=== PATIENT | female | born 1995 ===

== ENCOUNTER 2017-08-10 14:53 | Emergency (ER) | payer OTHER ==
[2017-08-10 15:13] VITALS: BMI 24.3
[2017-08-10 15:42] LABS: HCG,QUALITATIVE URINE NEGATIVE (NEGATIVE)
[2017-08-10 15:56] LABS: SQUAMOUS EPITHIAL 7 /hpf (0-5); URINE BACTERIA RARE (<OCC); URINE BILIRUBIN NEGATIVE (NEGATIVE); URINE BLOOD 2+ (NEGATIVE); URINE CLARITY Hazy (Clear); URINE COLOR Yellow (YELLOW); URINE GLUCOSE (UA) NORMAL (Normal); URINE LEUKOCYTE ESTERASE 3+ Leu/uL (Negative); URINE PROTEIN 1+ mg/dL (NEGATIVE)
[2017-08-10] MEDS ORDERED: Tmp-Smz 800 mg-160 mg DS Tab PO STA (15:58)
[2017-08-10 15:59] VITALS: BP 114/73; PULSE 94; RESP 18; TEMP 99.7; O2SAT 99
--- NOTE | 2017-08-10 16:01 | C.PDOC ---
History Of Present Illness 21 y/o female with history of UTI presents to ED with c/o dysuria for 2 days, and today associated with back pain and fever. Patient reports symptoms are similar as prior UTI. Patient denies vaginal bleeding, nausea, vomiting or any other complaints at this time. Time Seen by Provider: 08/10/17 15:25 Chief Complaint (Nursing): Fever History Per: Patient History/Exam Limitations: no limitations Onset/Duration Of Symptoms: Days Current Symptoms Are (Timing): Still Present Associated Symptoms: Fever, Urinary Symptoms Past Medical History Reviewed: Historical Data, Nursing Documentation, Vital Signs Vital Signs: Last Vital Signs Temp 99.7 F H 08/10/17 15:59 Pulse 94 H 08/10/17 15:59 Resp 18 08/10/17 15:59 BP 114/73 08/10/17 15:59 Pulse Ox 99 08/10/17 16:07 - Medical History PMH: No Chronic Diseases Surgical History: No Surg Hx Family History: States: No Known Family Hx - Social History Hx Alcohol Use: No Hx Substance Use: No - Immunization History Hx Tetanus Toxoid Vaccination: No Hx Influenza Vaccination: No Hx Pneumococcal Vaccination: Yes Review Of Systems Constitutional: Positive for: Fever. Negative for: Chills Gastrointestinal: Negative for: Nausea, Vomiting, Abdominal Pain Genitourinary: Positive for: Dysuria. Negative for: Vaginal Bleeding Musculoskeletal: Positive for: Back Pain Skin: Negative for: Rash Physical Exam - Physical Exam Appears: Non-toxic, No Acute Distress Skin: Warm, Dry, No Rash Head: Atraumatic, Normacephalic Eye(s): bilateral: Normal Inspection Oral Mucosa: Moist Neck: Normal ROM, Supple Cardiovascular: Rhythm Regular Respiratory: Normal Breath Sounds, No Rales, No Rhonchi, No Wheezing Gastrointestinal/Abdominal: Soft, Tenderness (Mild suprapubic), No Guarding, No Rebound Back: No CVA Tenderness, No Paraspinal Tenderness Neurological/Psych: Oriented x3, Normal Speech ED Course And Treatment O2 Sat by Pulse Oximetry: 99 (RA) Pulse Ox Interpretation: Normal Medical Decision Making Medical Decision Making: Impression: UTI Plan: * Tylenol * Bactrim * Urine culture sent Progress: Patient re-evaluated, fever resolved to 99F. She is in no distress. Abdomen remained soft and no CVA tenderness. Patient feels comfortable going home and will be discharged. Patient given follow up instructions. Instructed to return to ER if symptoms worsen or new symptoms arise. Disposition Counseled Patient/Family Regarding: Diagnosis, Need For Followup, Rx Given - Disposition Referrals: [facility] [Outside] [facility] [employer] [Outside] Disposition: HOME/ ROUTINE Disposition Time: 16:01 Condition: STABLE Additional Instructions: Mary Ann antibiticos dos veces al da [place] Tylenol o Advil 2-3 pastillas cada 6 horas segn sea necesario [place] [place] lulu brianda para que lo vean en la clnica para ms evaluacin Prescriptions: Sulfamethoxazole/Trimethoprim [Bactrim DS 800 mg-160 mg] 1 tab PO BID #14 tab Instructions: Urinary Tract Infection, Adult (DC) Forms: [employer] 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 - Scribe Statement The provider has reviewed the documentation as recorded by the Katlynibfifi Angulo All medical record entries made by the Anuradha were at my direction and personally dictated by me. I have reviewed the chart and agree that the record accurately reflects my personal performance of the history, physical exam, medical decision making, and the department course for this patient. I have also personally directed, reviewed, and agree with the discharge instructions and disposition.
[2017-08-10] MEDS ORDERED: Tmp-Smz 800 mg-160 mg DS Tab ONE (16:03)
== END 2017-08-10 16:11 | disposition home or self-care (01) ==
LOC: C.ER 14:53
DX: N39.0 Urinary tract infection, site not specified (principal); R50.9 Fever, unspecified

== ENCOUNTER 2018-02-20 10:55 | Outpatient (CLI) | payer OTHER | END 2018-02-20 10:56 | disposition home or self-care (01) | LOC: C.LAB 10:55 | DX: Z34.91 Encounter for supervision of normal pregnancy, unspecified, first trimester (principal) ==

== ENCOUNTER 2018-05-08 14:25 | Outpatient (CLI) | payer OTHER | END 2018-05-08 14:26 | disposition home or self-care (01) | LOC: C.LAB 14:25 | DX: Z34.82 Encounter for supervision of other normal pregnancy, second trimester (principal) ==